=== PATIENT | male | born 1995 | race Caucasian/White ===

== ENCOUNTER 2017-03-21 23:23 | Emergency (ER) | payer SELFPAY ==
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
== END 2017-03-22 01:29 | disposition home or self-care (01) ==
LOC: ER 23:23
PROC: 0CQ0XZZ Repair Upper Lip, External Approach (ICD-10-PCS; principal; 2017-03-21)
DX: S01.511A Laceration without foreign body of lip, initial encounter (principal); V86.59XA Driver of other special all-terrain or other off-road motor vehicle injured in nontraffic accident, initial encounter; Y92.830 Public park as the place of occurrence of the external cause; S30.811A Abrasion of abdominal wall, initial encounter